=== PATIENT | male | born 1955 | race African-American/Black ===

== ENCOUNTER 2017-08-11 21:59 | Observation (INO) | payer OTHER ==
[2017-08-11] MEDS ORDERED: NITROGLYCERIN OINT 1 INCH/GM PACKET TOPICAL STA (22:14)
[2017-08-11] MEDS ORDERED: HEPARIN SODIUM,PORCINE 5,000 UNIT/ML 1 ML VIAL IV STA (22:14)
[2017-08-11] MEDS ORDERED: HEPARIN SODIUM,PORCINE/D5W PMX 25,000 UNIT in DEXTROSE/WATER 1 500ML.BAG IV SCH (22:15)
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
[2017-08-11 22:34] LABS: Basophils % (A) 1 %; Eosinophils # (A) 0.1 k/uL (0-0.7); Eosinophils % (A) 2 %; HCT 40.6 % (39.0-53.0); HGB 13.4 gm/dL (13.0-17.5); Lymphocytes # (A) 2.7 k/uL (1.0-4.8); Lymphocytes % (A) 37 %; MCH 28.9 pg (25.0-35.0); MCV 87.7 fL (80.0-100.0); Monocytes # (A) 0.4 k/uL (0-1.0); Monocytes % (A) 5 %; Neutrophils % (A) 54 %; Platelet Count 249 k/uL (150-450); RBC 4.63 m/uL (4.30-5.90); RDW 13.6 % (11.5-15.5); WBC 7.4 k/uL (3.8-10.6)
[2017-08-11 22:51] LABS: INR 1.2 (<1.2); Partial Thromboplastin Time 24.4 sec (22.0-30.0); Prothrombin Time 11.4 sec (9.0-12.0)
--- NOTE | 2017-08-11 23:03 | XR ---
EXAMINATION TYPE: XR chest 2V DATE OF EXAM: 08/11/2017 COMPARISON: NONE HISTORY: Chest pain TECHNIQUE: Frontal and lateral views of the chest are obtained. FINDINGS: Heart and mediastinum are normal. Lungs are clear. Diaphragm is normal. There are chest le ads. There is old left humerus fracture. IMPRESSION: No cardiopulmonary disease.
[2017-08-11 23:58] LABS: ALT 34 U/L (21-72); AST 22 U/L (17-59); Albumin 3.5 g/dL (3.5-5.0); Alkaline Phosphatase 76 U/L (38-126); Anion Gap 11 mmol/L; Blood Urea Nitrogen 12 mg/dL (9-20); Calcium 8.9 mg/dL (8.4-10.2); Carbon Dioxide 25 mmol/L (22-30); Chloride 110 mmol/L (98-107); Glucose 84 mg/dL (74-99); Magnesium 2.1 mg/dL (1.6-2.3); Potassium 4.1 mmol/L (3.5-5.1); Sodium 146 mmol/L (137-145); Total Bilirubin 0.3 mg/dL (0.2-1.3)
[2017-08-12 00:03] LABS: Creatine Kinase 230 U/L (55-170)
[2017-08-12 00:15] LABS: Creatine Kinase MB 0.6 ng/mL (0.0-2.4); Troponin I <0.012 ng/mL (0.000-0.034)
[2017-08-12] MEDS ORDERED: NITROGLYCERIN SL TABS 0.4 MG TAB SUBLINGUAL PRN (00:30)
[2017-08-12] MEDS ORDERED: SODIUM CHLORIDE 0.9% 1,000 ML IV SCH (00:30)
[2017-08-12] MEDS ORDERED: ALPRAZolam 0.5 MG TAB PO PRN (00:32)
[2017-08-12] MEDS ORDERED: ALPRAZolam 0.5 MG TAB ONE (01:38)
[2017-08-12 06:24] LABS: Creatine Kinase 206 U/L (55-170)
[2017-08-12 06:36] LABS: Creatine Kinase MB 0.5 ng/mL (0.0-2.4); Troponin I <0.012 ng/mL (0.000-0.034)
[2017-08-12] MEDS: NITROGLYCERIN OINT 1 INCH/GM PACKET TOPICAL SCH ×2 (06:43→11:06)
[2017-08-12 08:20] VITALS: RESP 18; TEMP 98.2
[2017-08-12] MEDS ORDERED: PARoxetine 20 MG TAB PO SCH (09:00)
[2017-08-12] MEDS ORDERED: ASPIRIN 325 MG TAB PO SCH (09:00)
[2017-08-12] MEDS ORDERED: LOSARTAN 50 MG TAB PO SCH (09:00)
[2017-08-12] MEDS ORDERED: NON-FORMULARY DRUG (Dextroamphetamine/Amphetamine [Adderall] 30 MG) PO SCH (09:00)
[2017-08-12 11:33] VITALS: BP 119/73; PULSE 54
[2017-08-12 12:33] LABS: Creatine Kinase 188 U/L (55-170)
[2017-08-12 12:45] LABS: Creatine Kinase MB 0.5 ng/mL (0.0-2.4); Troponin I <0.012 ng/mL (0.000-0.034)
--- NOTE | 2017-08-12 17:59 | HP ---
HISTORY AND PHYSICAL DATE OF ADMISSION: 08/12/17 CHIEF COMPLAINT: Chest pain. HISTORY OF PRESENT ILLNESS: This is another admission for this 62-year-old male. He came to the emergency room with some vague chest pain which he describes as a pressure-like sensation which radiated to the right axilla. He had no associated shortness of breath, diaphoresis, nausea, etc. In the emergency room, his studies were negative. He was admitted for observation. REVIEW OF SYSTEMS: He has had no neurologic problems, syncope, change in vision or hearing, heart disease, murmurs, rheumatic fever, hypertension, abdominal pain, nausea, vomiting, and hematemesis, melena, hematochezia, jaundice, hematuria, frequency, urgency, arthralgias, diabetes, etc. Past medical history, family history, personal and social histories are unremarkable and noncontributory. He takes Adderall, Paxil, losartan, and Xanax. HE IS ALLERGIC TO SULFA. The only surgery he has had is on his left shoulder. He does smoke a pack of cigarettes a day. PHYSICAL EXAMINATION: Blood pressure is 129/86 with a pulse 75, respirations 30 and he is afebrile. GENERAL: He appeared to be slender in no acute distress. Skin is dry. Lymph nodes not enlarged. Head, ears, eyes, nose, mouth, and throat were normal. Neck veins not distended. Thyroid is not enlarged. Chest clear. Cardiac exam is normal and normal sinus rhythm and no murmurs or extra sounds. The abdomen is soft, nontender without any masses or visceromegaly. EXTREMITIES: Normal. Neurological is intact. IMPRESSION: Atypical chest pain. PLAN: 1. Bed rest. 2. IV fluids. 3. Serial EKGs and enzymes. MMODL / IJN: [id number] /
--- NOTE | 2017-08-12 18:44 | DS ---
DISCHARGE SUMMARY CHIEF COMPLAINT: Chest pain. HISTORY OF PRESENT ILLNESS AND PHYSICAL EXAM: Details of this man's history and physical can be found in the initial workup. LABORATORY STUDIES: While he was in the hospital, he had laboratory studies details of which can be found in the laboratory section of his chart. COURSE IN HOSPITAL: After admission, he was placed on bedrest, started on intravenous fluids and had serial EKGs and enzymes that were normal. He was doing well. It was felt he could go home. He will follow up in the office in several days. He will go home on his usual activity, diet and medication. FINAL DIAGNOSES: 1. Chest pain. 2. History of depression. 3. History of hypertension. 4. History of ADD. OPERATIONS: None. CONSULTATIONS: He is improved. LIVE / SHEYLA: [id number] /
== END 2017-08-12 16:51 | disposition home or self-care (01) ==
LOC: EC 21:59 → 3OBS 08-12 00:30
PROVIDERS: ADMIT Family Medicine; ATTEND Family Medicine
DX: R07.89 Other chest pain (principal); I10 Essential (primary) hypertension; F32.9 Major depressive disorder, single episode, unspecified; F98.8 Other specified behavioral and emotional disorders with onset usually occurring in childhood and adolescence; F11.20 Opioid dependence, uncomplicated; Z88.2 Allergy status to sulfonamides; Z79.899 Other long term (current) drug therapy; F17.210 Nicotine dependence, cigarettes, uncomplicated; Z86.19 Personal history of other infectious and parasitic diseases
CPT/HCPCS: 99291; 96376 ×2; 96365 ×2; 96366 ×3; 36415; 94760; 93005; 80053; 82550 ×2; 82553 ×2; 83735; 84484 ×2; 85025; 85610; 85730 ×2; 71046; G0378; J1644 ×2